=== PATIENT | male | born 1985 | race Caucasian/White ===

== ENCOUNTER 2020-02-18 08:38 | Outpatient (CLI) | payer BC, SELFPAY ==
--- NOTE | ~2020-02-18 | XR_ITS ---
EXAMINATION: CT abdomen pelvis wo/w con, XR abdomen/kub 1V DATE: 02/18/2020 09:32 INDICATION: Right-sided renal colic TECHNIQUE: 1. Computed tomography (CT) of the abdomen and pelvis was performed without intravenous contrast. CT of the abdomen and pelvis was then performed with a total of 130 mL Omnipaque-350 intravenous contras t using a double-bolus technique for simultaneous opacification of the renal parenchyma and renal col lecting system. Automated exposure control and iterative reconstruction technique were employed. The dose-length product was 834.28 mGy-cm. 2. A single view of the abdomen was obtained on 2 radiographs. COMPARISON: None FINDINGS: CT UROGRAM: Lung bases are clear. Heart size is normal. No pericardial or pleural effusion. Liver, gallbladder, s pleen, pancreas and bilateral adrenal glands are normal. Symmetric bilateral renal enhancement. 4 mm too small to definitively characterize low-attenuation likely left renal cyst seen only on the postco ntrast images. No urolithiasis or hydronephrosis. Portions of the bilateral mid to distal ureters are decompressed and not opacified with contrast. No urothelial irregularities identified at the bilater al renal collecting systems or contrast opacified portions of the ureters. Bladder is normal. There a re a few phleboliths in the pelvis. There are few scattered colonic diverticula without adjacent infl ammatory change to suggest diverticulitis. Small bowel and appendix is normal. No free intraperitonea l gas or fluid. No pathologically enlarged abdominal or pelvic lymphadenopathy. Left varicocele exten ding to the left inguinal canal. Bones are unremarkable. ABDOMEN RADIOGRAPH(S): A few phleboliths in the pelvis. Normal bowel gas pattern. Bone islands at the bilateral femoral head s. IMPRESSION: 1. 4 mm likely left renal cyst which is too small to definitively characterize. Otherwise normal kidn eys and ureters with no urolithiasis. Reviewed, dictated and finalized at location A. IMPRESSION: 1. 4 mm likely left renal cyst which is too small to definitively characterize. Otherwise normal kidneys and ureters with no urolithiasis.
== END 2020-02-18 08:39 | disposition home or self-care (01) ==
PROVIDERS: Visit Provider Urology
DX: N23 Unspecified renal colic (principal); N28.1 Cyst of kidney, acquired
CPT/HCPCS: 74018; 74178; Q9967